=== PATIENT | male | born 1985 | race African-American/Black ===

== ENCOUNTER 2020-03-10 13:17 | Emergency (ER) | payer OTHER ==
[~2020-03-10] VITALS: Ht 182.9 cm; Wt 104.3 kg
[2020-03-10 13:22] VITALS: BP 136/73
[2020-03-10 14:22] VITALS: BP 136/73
== END 2020-03-10 14:23 | disposition home or self-care (01) ==
LOC: MED 13:17
DX: R07.9 Chest pain, unspecified (principal); R20.0 Anesthesia of skin
CPT/HCPCS: 93005; 99283